=== PATIENT | female | born 1980 | race African-American/Black ===

== ENCOUNTER 2023-10-17 06:57 | Emergency (ER) | payer MEDICARE, MEDICAID ==
[~2023-10-17] VITALS: Ht 165.1 cm; Wt 56.0 kg
[~2023-10-17 06:57] MED LIST: IBUP-779 PO; PHEN100C4 PO; SENN-18 PO
[2023-10-17 07:06] VITALS: O2SAT 100
[2023-10-17] MEDS: LIDOCAINE HCL/PF 1% 10 MG/ML 5ML VIAL INFIL ONE (07:15)
[2023-10-17] MEDS ORDERED: TOPUD PO (09:46)
[2023-10-17 10:12] VITALS: BP 128/74; PULSE 80; RESP 18; TEMP 98
== END 2023-10-17 10:56 | disposition home or self-care (01) ==
LOC: ER 06:57
DX: S01.81XA Laceration without foreign body of other part of head, initial encounter (principal); R56.9 Unspecified convulsions; W18.39XA Other fall on same level, initial encounter; Y93.89 Activity, other specified; Y92.89 Other specified places as the place of occurrence of the external cause; Y99.8 Other external cause status
CPT/HCPCS: 99284; 70450; 70486; J3490

== ENCOUNTER 2024-02-02 21:25 | Emergency (ER) | payer MEDICARE, MEDICAID ==
[~2024-02-02] VITALS: Ht 165.1 cm; Wt 48.0 kg
[~2024-02-02 21:25] MED LIST changes: +TOPUD PO
[2024-02-02 21:34] VITALS: O2SAT 99
[2024-02-02] MEDS ORDERED: ACETAMINOPHEN 500MG TABLET PO ONE (21:45)
[2024-02-02] MEDS ORDERED: TOPUD MT (22:54)
[2024-02-02] MEDS: ACETAMINOPHEN 500MG TABLET PO NR (23:00)
[2024-02-03 00:11] VITALS: BP 146/65; PULSE 89; RESP 16; TEMP 36.61404; O2SAT 99
== END 2024-02-03 00:13 | disposition home or self-care (01) ==
LOC: ER 21:25
DX: M79.671 Pain in right foot (principal); Z79.899 Other long term (current) drug therapy
CPT/HCPCS: 73630; 99283